=== PATIENT | female | born 1955 | race Caucasian/White ===

== ENCOUNTER → 2017-08-03 | Outpatient (CLI) | payer BC ==
[2017-08-03] MEDS: GADOBUTROL 7.5 MMOL/7.5 ML VIAL IV (12:52)
== END | disposition home or self-care (01) ==
LOC: KCIC MRI 10:52
DX: H93.13 Tinnitus, bilateral (principal); J34.2 Deviated nasal septum; R42 Dizziness and giddiness; R11.0 Nausea
CPT/HCPCS: 70546; 70549; 70553; A9585

== ENCOUNTER → 2017-09-15 | Outpatient (CLI) | payer BC | END | disposition home or self-care (01) | LOC: KCIC MAMMO 09:22 | DX: N60.02 Solitary cyst of left breast (principal) | CPT/HCPCS: 76641; 77065 ==

== ENCOUNTER → 2018-04-10 | Outpatient (CLI) | payer BC ==
[2014-08-12 12:30] VITALS: BP 169/72
[~2018-04-10] MED LIST: ASPI-482 PO; BUDE0.253 IH; CETI10TA22 PO; GABA-586 PO; HYDR12.58 PO; MONT10TA9 PO; PROAIR HFA8.5 GM INH
--- NOTE | 2018-04-10 15:03 | RAD ---
DATE: 04/10/2018 EXAM: DIGITAL DIAGNOSTIC BILATERAL, BREAST LEFT HISTORY: Abnormal mammogram and ultrasound exam of the left breast COMPARISON: 03/31/2017 screen mammographic exam, left breast ultrasound 09/15/2017, left unilateral diagnostic mammography exam 09/15/2017, 07/11/2014 mammographic exam This study was interpreted with the benefit of Computerized Aided Detection (CAD). Breast Density: DENSE The breast parenchyma is dense, which could reduce the sensitivity of mammography. Breast parenchyma level density D. FINDINGS: Minimal benign calcification involves the left breast. No masses. No distortion is identified. No suspicious calcification cluster. Ultrasound imaging of the left breast was performed. The inner breast region is similar in appearance compared to previous exam. No masses or other suspicious findings evident. IMPRESSION: Normal BI-RADS CATEGORY: 2 BENIGN FINDING(S) RECOMMENDED FOLLOW-UP: 12M 12 MONTH FOLLOW-UP PQRS compliance statement: Patient information was entered into a reminder system with a target due date in one year for the next mammogram. Mammography is a sensitive method for finding small breast cancers, but it does not detect them all and is not a substitute for careful clinical examination. A negative mammogram does not negate a clinically suspicious finding and should not result in delay in biopsying a clinically suspicious abnormality. "Our facility is accredited by the [employer] Mammography [employer]."
== END | disposition home or self-care (01) ==
LOC: MAMMO 13:22
PROVIDERS: ATTEND Family Medicine
DX: R92.8 Other abnormal and inconclusive findings on diagnostic imaging of breast (principal)
CPT/HCPCS: 76641; 77066

== ENCOUNTER → 2018-12-13 | Outpatient (CLI) | payer BC ==
[2014-08-12 12:30] VITALS: BP 169/72
[~2018-12-13] MED LIST changes: +ALBU2.5V8 INH; -GABA-586 PO; +GABA300C18 PO; +MONT10TA49 PO; -MONT10TA9 PO; -PROAIR HFA8.5 GM INH
--- NOTE | 2018-12-13 14:39 | CARD ---
MR#: [id number] Date of Study: 12/13/2018 Ordering Physician: SISI HARPER, Referring Physician: Pete OROURKE: Yolanda Man RDCS APPROVED REPORT INDICATION Chest Pain PROCEDURE The patient underwent an Exercise Stress Test using the [employer] Protocol. Blood pressure, heart rate, a nd EKG were monitored. An Echocardiogram was performed by office technician in four stages in quad fashion. At peak stress four se lected images were obtained and placed side by side with resting images for comparison. STRESS ECHO FINDINGS The resting Echocardiogram showed normal left ventricular systolic contractility with an estimated Ej ection Fraction of about 60 %. The Resting Echocardiogram showed normal augmentation of myocardial wall segments using a 16 segment model. The Stress Echocardiogram showed normal augmentation of myocardial wall segments using a 16 segment m walter. The Stress Echocardiogram left ventricular systolic contractility has an estimated Ejection Fraction of about 65%. Test Type: Exercise Stress Nurse/Tech: Bre Ruff RN Test Indications: Chest pain and shortness of air Cardiac History and Allergies: See [employer] EMR NKDA Medications: See EMR Medical History: See EMR Resting ECG: SB with PVCs and PACs Resting Heart Rate: 53 bpm Resting Blood Pressure: 138/52mmHg Pretest Chest Pain: No chest pain Nurse/Tech Notes S1,S2 and lungs slightly diminished in the bases. Stress Symptoms Fatigue POST EXERCISE Reason for Termination: Reached target heart rate, Fatigue Target HR: Yes Max HR: 176 bpm 112% of Maximum Predicted HR: 157 bpm Exercise duration: 8:00 min:sec, 3 Stage Exercise capacity: 10..1METs Max Blood Pressure: 159/60mmHg Blood Pressure response to exercise: Normal blood pressure response during stress. Heart Rate response to exercise: WNL Chest Pain: No. Arrhythmia: Yes. PVCs and PACs ST Change: Yes. non diagnostic changes INTERPRETATION Stress EKG Conclusion: Baseline EKG showed sinus rhythm. Non diagnostic changes at peak stress. Few PAC's, PVC's without any significant arrhythmias. Preliminary Notification Critical Value: No <Conclusion> Treadmill exercise stress echocardiogram did not show any evidence of ischemia or infarct. Normal left ventricle systolic function with ejection fraction estimated at 60%. Patient had good activity tolerance. Low risk for cardiac events. Signed by : Sisi Harper, Electronically Approved : 12/13/2018 14:38:39
== END | disposition home or self-care (01) ==
LOC: ECHO 12:52
PROVIDERS: ATTEND Internal Medicine Cardiovascular Disease
DX: I49.3 Ventricular premature depolarization (principal); I49.1 Atrial premature depolarization; R53.83 Other fatigue
CPT/HCPCS: 93017; 93350

== ENCOUNTER → 2019-07-31 | Outpatient (CLI) | payer BC ==
[2014-08-12 12:30] VITALS: BP 169/72
[~2019-07-31] MED LIST changes: -CETI10TA22 PO; +CETI10TA24 PO
--- NOTE | 2019-08-01 10:56 | RAD ---
History: Routine screening. Technique: Bilateral digital mammographic routine views were obtained with 2-D and 3-D technique CAD - computer aided detection. Comparison: 04/10/2018, 08/07/2015 and 07/11/2014.. Findings: Breast Tissue Density C : The breast tissue is heterogeneously dense. Scattered fibroglandular elements may obscure underlying pathology. An asymmetry in the posterior superior right breast best seen on the tomographic image 28 of 45 is identified and needs additional imaging with spot magnification views. There may be associated punctate microcalcifications. In the left breast there are no suspicious masses, microcalcifications or areas of architectural distortion. Impression: Incomplete. Right breast needs additional imaging. Recommend spot magnification views of the right breast in the CC projection BI-RADS Category 0: Incomplete: Need additional imaging evaluation. Needs additional imaging evaluation. Your mammogram demonstrates that you have dense breast tissue, which could hide abnormalities, and if you have other risk factors for breast cancer that have been identified, you might benefit from supplemental screening tests that may be suggested by your ordering physician. Dense breast tissue, in and of itself, is a relatively common condition. This information is not provided to cause undue concern, but rather to raise your awareness and to promote discussion with your physician regarding the presence of other risk factors, in addition to dense breast tissue. A report of your mammography results will be sent to you and your physician. You should contact your physician if you have any questions or concerns regarding this report. A mammogram does not have 100% sensitivity and therefore a negative imaging study should not delay further work up of a suspicious abnormality. The patient will receive a letter with the results in the mail. Patient information is entered into the reminder system with a target due date for the next screening mammogram. The patient will receive a reminder. "Our facility is accredited by the [employer]ammography [employer]." BI-RADS 0 -- incomplete assessment
== END | disposition home or self-care (01) ==
LOC: MAMMO 10:54
PROVIDERS: ATTEND Nurse Practitioner Family
DX: Z12.31 Encounter for screening mammogram for malignant neoplasm of breast (principal)
CPT/HCPCS: 77063; 77067

== ENCOUNTER → 2019-08-02 | Outpatient (CLI) | payer BC ==
[2014-08-12 12:30] VITALS: BP 169/72
--- NOTE | 2019-08-02 12:57 | RAD ---
Examination: 1. Right diagnostic mammogram 2. Limited right breast ultrasound. INDICATION: Screening recall for right breast asymmetry. COMPARISON: 07/31/2019 TECHNIQUE: Spot medication view of the right breast in the CC projection was performed. Thereafter targeted ultrasound of the right breast of the upper-outer quadrant was performed. FINDINGS: Additional mammographic views of the right breast showed heterogeneously dense breast parenchyma with less conspicuity of the asymmetry recalled from screening but it did not fully dissipate. Additional imaging by targeted ultrasound was pursued. Ultrasound of the right breast at the 10:00 position 4 cm from the nipple revealed an irregular superficial focal asymmetry that could represent a ridge of fibrous tissue but is considered suspicious and recommended for core needle biopsy. It measures 1.5 cm transverse diameter in the radial orientation and 1.2 cm in the antiradial orientation. IMPRESSION: Suspicious irregular focal asymmetry in the superior right breast. Ultrasound-guided right breast core needle biopsy is recommended. BI-RADS Category 4 Findings suspicious for malignancy. Recommend biopsy. Discussed with patient BI-RADS 4 -- suspicious abnormality, biopsy recommended
== END | disposition home or self-care (01) ==
LOC: MAMMO 11:31
PROVIDERS: ATTEND Nurse Practitioner Family
DX: N64.89 Other specified disorders of breast (principal)
CPT/HCPCS: 76641; 77065

== ENCOUNTER → 2019-08-23 | Outpatient (CLI) | payer BC ==
[2014-08-12 12:30] VITALS: BP 169/72
--- NOTE | 2019-08-23 16:46 | RAD ---
Examination: US GUID NDL PLACE/ASPI/BX, DIGITAL DIAGNOSTIC RT History: Abnormal right breast ultrasound. Comparison/Correlation: 08/02/2019 right breast ultrasound and right unilateral diagnostic mammogram. Findings: Risks, benefits, and alternatives regarding ultrasound-guided core biopsy of the right breast 10:00 lesion of interest 4 cm from the nipple were discussed with the patient and informed consent was obtained. Cleansing with ChloraPrep at the anticipated site of needle placement was performed. Sterile draping, sterile gel, and sterile probe cover is were utilized. Approximately 8 of 1 percent lidocaine was administered subcutaneously and along the expected course of the needle tracks. Small scalpel incision was made for a medial approach. Introducer was placed. A 12-gauge core biopsy needle was then placed via the introducer. Total of 6 passes were made with the trough open. Specimens from 5 of the 6 passes were very small and friable. One of the 6 specimens obtained was relatively larger in size. Biopsy clip marker was placed via the introducer. The patient tolerated procedure well without any immediate complications. On the CC and MLO images of the right breast acquired after the biopsy, clip marker is present right upper outer breast. No hematoma or other suspicious finding. Impression: Successful ultrasound-guided biopsy of the right breast mass. Specimens sent to lab. Electronically signed by: Stan Leonard MD (08/23/2019 4:43 PM) [id number]
--- NOTE | 2019-08-24 17:06 | PATHOLOGY ---
[facility] Accession Number: [id number] . 01 Material submitted: . breast - RIGHT BREAST, 10:00, 4CMFN. Modifiers: right, 10:00 . 01 Clinical history: . Right breast mass . 02 Diagnosis: Breast tissue, right breast mass 10:00, needle biopsies: - Dense stromal sclerosis with focal apocrine metaplasia. . (JPM:mml; 08/24/2019) [facility] 08/24/2019 1343 Local . 02 Comment: Sections of the right breast mass at 10:00 needle biopsies reveal breast tissue showing dense stromal sclerosis with focal apocrine metaplasia. There are scattered atrophic terminal duct lobular units. A rare microcalcification is noted. There is no atypia or evidence of malignancy. . (JPM:mml; 08/24/2019) . 02 Electronically signed: . Norman Parra MD, Pathologist NPI- [id number] . 01 Gross description: . The specimen is received in formalin, labeled "Otto Rocha, right breast 10:00 4 cm from nipple". Received are multiple needle cores of fibrofatty tissue measuring 1.0 x 1.0 x 0.2 cm in aggregate dimensions. The specimen is submitted entirely in cassettes A1 through A3. The cold ischemic time is 5 minutes. The total formalin fixation time is 11 hours and 25 minutes. ([facility]; 08/23/2019) QAC/QAC 08/23/2019 1641 Local . 02 Pathologist provided ICD-10: N60.31, N60.81 . 02 CPT . 704650 Specimen Comment: A courtesy copy of this report has been sent to [phone], [phone] Specimen Comment: [id number], Specimen Comment: Report sent to ,DR DICKINSON / DR VILLALPANDO Performed at: 01 [facility] [address], [place] [id number] MD Bill Moses MD Phone: [phone] Performed at: 02 [facility] [place] [address] [place], [place] [id number] MD Norman Parra MD Phone: [phone]
== END | disposition home or self-care (01) ==
LOC: US 09:00
PROVIDERS: ATTEND Surgery
DX: N63.10 Unspecified lump in the right breast, unspecified quadrant (principal)
CPT/HCPCS: 19083; 77065; C1713; 19081; 76942; 88305

== ENCOUNTER → 2020-09-23 | Outpatient (CLI) | payer MEDICARE, OTHER ==
[2014-08-12 12:30] VITALS: BP 169/72
[~2020-09-23] MED LIST changes: -CETI10TA24 PO; +CETI10TA74 PO
--- NOTE | 2020-09-23 13:11 | KCIC ---
INDICATION: Screening for osteopenia/osteoporosis. Postmenopausal evaluation. COMPARISON: 05/13/2015 TECHNIQUE: Bone densitometry was performed through the lumbar spine and proximal femur. IMPRESSION: Lumbar Spine: BMD: 0.95 T-Score: -0.9 Range: Lower limits of normal on the border with osteopenia. Decreased by 5 percent from prior. Proximal Femur: BMD: 0.71 T-Score: -1.9 Range: Osteopenic. Decreased by 9 percent from prior. World Health Organization Criteria for Bone Density: T-Score: > -1.0: Normal Range < -1.0 to -2.5: Osteopenic Range < -2.5: Osteoporotic Range Electronically signed by: Phani Girard MD (09/23/2020 1:09 PM) [id number]
== END ==
LOC: KCIC DEXA 10:16
PROVIDERS: ATTEND Family Medicine
DX: N95.9 Unspecified menopausal and perimenopausal disorder (principal); M85.88 Other specified disorders of bone density and structure, other site
CPT/HCPCS: 77080

== ENCOUNTER → 2021-03-09 | Outpatient (CLI) | payer MEDICARE, OTHER ==
[2014-08-12 12:30] VITALS: BP 169/72
--- NOTE | 2021-03-09 12:06 | RAD ---
EXAM: 1. BILATERAL DIGITAL 3-D DIAGNOSTIC MAMMOGRAPHY. 2. BILATERAL BREAST ULTRASOUND. HISTORY: Six-month follow-up after benign right breast biopsy was requested for January 2020. The freddy curtis presents for that follow-up and bilateral surveillance. TECHNIQUE: Bilateral full field digital images were obtained in CC and MLO projections. Computer-aide d detection was applied. Sonography of both breasts was also performed. COMPARISON: 07/31/2019, 08/02/2019. COMPOSITION: D. The breasts are extremely dense, which lowers the sensitivity of mammography. FINDINGS: A postbiopsy clip is noted superolaterally on the right. There is no mammographic abnormali ty at this site. The sonographic biopsy site demonstrate the postbiopsy clip and surrounding parenchy ma without a clear abnormality. The site of initial concern on prior mammography posteriorly and superiorly on the right MLO projecti on appears parenchymal in stable. Scattered and coarse calcifications are benign. A circumscribed nodule just lateral to the left nippl e on tomographic CT images has no correlate on today's sonography. Only normal parenchyma is seen at this site sonographically. Sonography of both axillae reveals no pathologic-appearing lymph nodes. There are no suspicious masses, microcalcifications or architectural distortion. The parenchymal victor m fransisca is stable. BI-RADS CATEGORY 2: Benign. RECOMMENDATION: 1. Routine screening mammography in one year. If mammography demonstrates dense breast tissue (heterogenously dense or extremely dense, category C or D), which could hide abnormalities, and if other risk factors for breast cancer have been identifi ed, supplemental screening tests that may be suggested by the ordering physician may be of benefit. D ense breast tissue, in and of itself, is a relatively common condition. Therefore, this information i s not provided to cause undue concern, but rather to raise awareness and to promote discussion with t he referring physician regarding the presence of other risk factors, in addition to dense breast tiss ue. The results of this mammography examination is provided to the patient and referring physician. T he patient should contact their referring physician if any questions or concerns exist regarding this report. PQRS compliance statement - Patient information was entered into a reminder system with a target due date for the next mammogram. "Our facility is accredited by the [employer]amm[employer]." Electronically signed by: Robin Fregoso MD (03/09/2021 12:04 PM) [email or web address]
== END ==
LOC: MAMMO 10:52
PROVIDERS: ATTEND Family Medicine
DX: R92.8 Other abnormal and inconclusive findings on diagnostic imaging of breast (principal)
CPT/HCPCS: 76641; 77066; G0279; 77062